=== PATIENT | female | born 1985 | race Caucasian/White ===

== ENCOUNTER 2022-07-28 09:42 | Emergency (ER) | payer OTHER, SELFPAY ==
[2022-07-28 09:47] VITALS: BP 120/77; PULSE 89; RESP 14; TEMP 36.3; O2SAT 98
[2022-07-28] MEDS: PROPARACAINE 0.5% OPHTH SOL 1 DROPS EYE-RIGHT (09:51)
[2022-07-28] MEDS: FLUORESCEIN 1 MG STRIP EYE-RIGHT (09:51)
[2022-07-28] MEDS: OFLOXACIN 0.3% OPHTH 5 ML 1 DROPS EYE-RIGHT (10:04)
--- NOTE | 2022-07-28 14:57 | ED_ITS ---
HPI - Eye Problem General Chief complaint: Eye Problems Stated complaint: contact stuck in rt eye lid Time Seen by Provider: 07/28/22 09:50 Source: patient Mode of arrival: Ambulatory History of Present Illness HPI Narrative: 37-year-old female nonsmoker without chronic medical history presents with the chief complaint that she has a soft contact in her right eye. She states that she just placed them this morning and her and her were on their way to the [place] to go to the [facility] for the weekend, she felt like her contact have become dislodged and was up under her upper eyelid. She made multiple attempts to try to get out was unsuccessful and came to see us. She does state that she feels like there is something still in her eye. She states her tetanus is up-to-date. She denies any injury, drainage, bleeding. Related Data Allergies Allergy/AdvReac Type Severity Reaction Status Date / Time No Known Drug Allergies Allergy Verified 07/28/22 09:47 Review of Systems Review of Systems Narrative: GENERAL: Denies chills, fatigue, malaise, fever, sweats. HEENT: See HPI RESPIRATORY: Denies dyspnea, cough, wheezing, hemoptysis, sputum. CARDIOVASCULAR: Denies chest pain, palpitations, orthopnea, edema, GASTROINTESTINAL: Denies nausea, vomiting, abdominal pain, diarrhea, constipation, melena. : Denies dysuria, frequency, incontinence, hematuria, urinary retention. MUSCULOSKELETAL: denies weakness, joint pain, or bony pain SKIN: Denies rash, skin lesions, or other NEUROLOGIC: Denies weakness, headache, numbness, change in speech, confusion, seizures, incoordination. PSYCHIATRIC: No concerning psychosocial issues. 12 point review of systems is negative except for those stated above Exam Narrative Exam Narrative: GEN: AOx3 and in mild distress EYES: Pupils are equal, round, and reactive to light and accommodation. Extraoccular muscles are intact bilaterally. There is no subconjunctival hemorrhage or exudate. Right eye visualized under Wood's lamp, no erythema, increased watering, no evidence of foreign body, upper lid everted and no evidence of foreign body, proparacaine instilled in the eye and multiple sweeps with sterile cotton swab do not result in any obvious foreign body, fluorescein instilled and there is some evidence of corneal abrasion at the 1 to 2 o'clock position. CHEST: Lungs are clear to auscultation bilaterally and free of wheezes, rales, or rhonchi. Heart rate is regular rhythm, there are no murmurs, clicks, rubs, or gallops. There is no chest wall tenderness. ABD: Abdomen is soft and nontender. There is no guarding or rebound. Bowel sounds are normal in all 4 quadrants. There is no mass or organomegaly. EXT: Full painless ROM of all extremities with no loss of sensation or strength. SKIN: Warm, pink, and dry. No erythema or rash Initial Vital Signs Initial Vital Signs: Vital Signs Temperature 97.4 F L 07/28/22 09:47 Pulse Rate 89 07/28/22 09:47 Respiratory Rate 14 07/28/22 09:47 Blood Pressure 120/77 07/28/22 09:47 Pulse Oximetry 98 07/28/22 09:47 Oxygen Delivery Method Room Air 07/28/22 09:47 Course Orders Ordered: Discontinued Medications Fluorescein Sodium (Fluorescein 1 Mg Strip) 1 mg EYE-RIGHT NOW ONE Stop: 07/28/22 09:50 Last Admin: 07/28/22 09:51 Dose: 1 mg Documented By: MELLO Ofloxacin (Ofloxacin 0.3% Ophth 5 Ml) 1 drops EYE-RIGHT NOW ONE Stop: 07/28/22 10:01 Last Admin: 07/28/22 10:04 Dose: 1 1000units Documented By: MELLO Proparacaine HCl (Proparacaine 0.5% Ophth Xin) 1 drops EYE-RIGHT NOW ONE Stop: 07/28/22 09:50 Last Admin: 07/28/22 09:51 Dose: 1 1000units Documented By: MELLO Vital Signs Vital signs: Vital Signs - 8 hr 07/28/22 09:47 Temperature 97.4 F L Pulse Rate 89 Respiratory Rate 14 Blood Pressure 120/77 Pulse Oximetry 98 Oxygen Delivery Method Room Air MDM - Eye Problem MDM Narrative Medical decision making narrative: [37] year old patient presents with concern for right eye foreign body Multiple etiologies for patient's symptoms considered including, but not limited to: [Foreign body versus abrasion versus infectious process versus other] Prior Charts not available Primary Historian: patient Patient with reassuring history and physical exam, no evidence of foreign body, upper lid everted, blind sweeps result in no foreign body, there is some fluorescein uptake in the region that she feels discomfort at the 2 o'clock position, patient given ofloxacin and return precautions, encouraged to follow closely with Ophthalmology Findings and discharge diagnosis discussed with patient/family followed by verbalization of understanding Return precautions discussed with patient/family whom verbalize understanding of diagnosis and plan Discharge Plan Departure Patient Disposition: Home Clinical Impression: Corneal abrasion Instructions: DI for Corneal Abrasion Activity Restrictions/Additional Instructions: *You have been diagnosed with [minor right eye corneal abrasion, as we discussed despite our best efforts there is no evidence of a retained foreign body in your eye] *What to do: *Please use 1-2 drops of the ofloxacin in your right eye every 4 hours until you feel better. *Please follow up with your eye doctor early next week. Please do not wear contacts until your follow-up *Return to Emergency Department if you should have any new, worsening or concerning symptoms, such as [fever greater than 101 F, shaking chills, worseni ng pain, persistent vomiting or other bothersome symptoms] Stand Alone Forms: Patient Portal/API
== END 2022-07-28 10:06 | disposition home or self-care (01) ==
PROVIDERS: Emergency Provider Emergency Medicine
DX: H18.821 Corneal disorder due to contact lens, right eye (principal)
CPT/HCPCS: 99282